=== PATIENT | female | born 1970 | race Caucasian/White ===

== ENCOUNTER → 2022-10-25 | Outpatient (CLI) | payer SELFPAY ==
--- NOTE | 2022-10-25 12:39 | ECHOD_ITS ---
Reason For Study: PALPITATIONS Procedure This was a 2D Doppler, Color Flow transthoracic echocardiogram. Exam performed in department. Left Ventricle Normal LV size. Left ventricular systolic function is normal. The estimated ejection fraction is 60 %. Stage 1 diastolic dysfunction. No regional wall motion abnormalities noted. Right Ventricle Normal RV size. Normal systolic function. Atria Normal left atrium. Normal right atrium. Mitral Valve Normal mitral valve. Mild (1+) mitral valve insufficiency. Tricuspid Valve Normal tricuspid valve. Mild (1+) tricuspid valve insufficiency. Pulmonary artery systolic pressure is 26 mmHg. Aortic Valve Normal aortic valve. Trisinus/trileaflet aortic valve. Mild (1+) aortic valve insufficiency. Pulmonic Valve Normal pulmonic valve. Great Vessels Normal aortic root. The pulmonary artery is normal size. Normal inferior vena cava. Pericardium/Pleural No pericardial effusion. MMode/2D Measurements & Calculations LVIDd: 4.7 cm IVSd: 0.72 cm Ao root diam: 3.1 cm LVIDs: 3.3 cm LVPWd: 0.80 cm FS: 30.3 % LAV(MOD-bp): 41.4 ml LVAd ap4: 28.3 cm2 SV(MOD-sp4): 54.7 ml LAV(MOD-bp) Indexed: 22.9 ml/m2 LVLd ap4: 7.0 cm LAV(MOD-sp2): 40.3 ml EDV(MOD-sp4): 93.5 ml LAV(MOD-sp4): 42.7 ml EDV(sp4-el): 97.2 ml LVAs ap4: 16.3 cm2 LVLs ap4: 5.8 cm ESV(MOD-sp4): 38.8 ml ESV(sp4-el): 38.9 ml EF(MOD-sp4): 58.5 % EF(sp4-el): 60.0 % SV(sp4-el): 58.3 ml LA A4 area: 16.7 cm2 LA dimension(2D): 3.9 cm RA A4 area: 17.5 cm2 TAPSE: 2.4 cm Time Measurements MV dec time: 0.19 sec Doppler Measurements & Calculations MV E max kana: 67.0 cm/sec Lat Peak E' Kana: 12.1 cm/sec Med Peak E' Kana: 7.9 cm/sec MV A max kana: 71.0 cm/sec E/E' lat: 5.5 E/E' med: 8.4 MV E/A: 0.94 Ao V2 max: 116.5 cm/sec AI max kana: 439.6 cm/sec LV V1 max: 77.5 cm/sec Ao max P.4 mmHg AI max P.3 mmHg LV V1 max P.4 mmHg AI dec slope: 125.1 cm/sec2 AI P1/2t: 1029 msec PA V2 max: 85.6 cm/sec TR max kana: 241.7 cm/sec TR max P.4 mmHg ECHO/Echo Complete Interpretation Summary Normal LV size. Left ventricular systolic function is normal. The estimated ejection fraction is 60 %. Mild (1+) aortic valve insufficiency. Mild (1+) mitral valve insufficiency. Stage 1 diastolic dysfunction. Ordering Physician: Edi Stewart Referring Physician: PANCHO LARA Performed By: Wendy Benoit, DILIP
== END | disposition home or self-care (01) ==
PROVIDERS: PCP Family Medicine; Referring Provider Internal Medicine Cardiovascular Disease; Visit Provider Internal Medicine Cardiovascular Disease
DX: R00.2 Palpitations (principal)
CPT/HCPCS: 93306